=== PATIENT | female | born 1985 | race Caucasian/White ===

== ENCOUNTER → 2017-02-19 | Day surgery (SDC) | payer OTHER ==
[~2017-02-19] MED LIST: ACETAMINOPHEN PO; ACETAMINOPHEN325 MG PO; ALBUTEROL17 GM INH; ALLERGY10 M1 PO; AMOXICILLIN PO; AMOXIL500 MG PO; ANSAID100 MG PO; ATARAX PO; BIRTH CONTROL; BIRTH CONTROL PILL; BIRTH CONTROL PILL PO; BIRTH CONTROL PO; CELEXA PO; CELEXA20 MG PO; CLARITIN10 MG; CLARITIN10 MG PO; CLEOCIN HCL300 M1 PO; COLACE PO; DESYREL50 MG PO; DICLOFENAC PO; DICLOFENAC SODI50 MG PO; DICYCLOMINE HCL20 MG PO; DOXYCYCLINE HY100 M1 PO; DOXYCYCLINE PO; EC-NAPROSYN500 MG PO; FAMOTIDINE PO; FEMCON FE TABL1 EACH PO; FEOSOL PO; FERRO-TIME325 MG PO; FERROUS SULFATE PO; FIBERCON625 MG PO; FLAGYL PO; FLEXERIL PO; GILDESS1 EAC1 PO; IRON SUPPLEMENT; IRON1 TA1; IRON1 TAB PO; IRON325 ( 651 PO; LASIX PO; LEVOTHROID50 MCG PO; LEVOTHYROXINE75 MC1 PO; LEVSIN-SL0.125 MG SL; LINZESS290 MCG PO; LOESTRIN 24 FE1 TAB PO; LOESTRIN FE 1-21 TAB PO; LOPRESSOR PO; LORTAB 5/500 TA1 TA2 PO; MEDROL PO; MELATONIN; METOPROLOL; METOPROLOL SUC200 MG; METOPROLOL SUCC50 MG PO; METOPROLOL TART25 MG PO; MIRALAX17 GM DOB; MOBIC PO; NAPROSYN500 MG PO; NAPROXEN; NATURAL VITA400 UNI2 PO; NEXIUM; NEXIUM PO; NEXIUM20 MG PO; ORTHO MICRONO0.35 MG; ORTHO NOVUM PO; PHENERGAN PO; PHENERGAN25 MG PO; PRINIVIL5 MG PO; PYRIDIUM PO; QVAR7.3 GM INH; ROBAXIN500 MG PO; SLEEPING PILL; STOOL SOFTENER50 MG; SYNTHROID PO; SYNTHROID0.05 MG PO; SYNTHROID75 MCG; THYROID PO; TOPROL XL 50 MG50 MG PO; TOPROL XL PO; TOPROL XL50 MG PO; TRAMADOL HCL50 M2 PO; TRAZODONE PO; ULTRAM PO; VICODIN 5/1 TAB 5/50 PO; VICODIN 5/500 T1 TAB PO; VITAMIN D; VITAMIN D400 UNI2 PO; VOLTAREN50 MG PO; VOLTAREN75 MG PO; YASMIN 28 TABLE1 TAB PO; ZITHROMAX PO; ZOFRAN ODT4 MG PO; ZOFRANODT SL; ZOLOFT; ZOLOFT PO; ZOLOFT100 MG PO; ZYRTEC10 M2 PO; [UNRECOGNIZED DRUG - REMARK] PO
--- NOTE | ~2017-02-19 | OR ---
Unit #: [id number] #: [id number] Patient: KYRA HENDRICKS [id number] [address] [place], [place] [address] [id number] O MR#: [id number] NAME: KYRA HENDRICKS. ROOM: Date of Procedure: 02/19/2017 Admission Date: 02/19/2017 Surgeon: Sami Hsieh Jr., M.D. : 1985 Attending Physician: Sami Hsieh Jr., M.D. Primary Care Physician: Stephanie Matos A.P.R.N. OPERATIVE REPORT INDICATIONS FOR PROCEDURE The patient is a 31-year-old obese white female with a family history of Clemons syndrome, who has had some recent rectal bleeding. She is concerned about this and is brought in at her request for colonoscopy to rule out any significant pathology. PREOPERATIVE DIAGNOSIS Rectal bleeding etiology? POSTOPERATIVE DIAGNOSIS Normal colonoscopy to the distal ileum. ANESTHESIA MAC anesthesia. PROCEDURE PERFORMED Flexible colonoscopy to the distal ileum. DESCRIPTION OF PROCEDURE The patient was positioned in Burrell position with left side down. After being given MAC anesthesia, digital rectal examination was performed, which revealed no palpable mass or tenderness. No blood or stool within the rectal ampulla. The Olympus colonoscope was advanced through the anal canal up the rectum and retroflexed down to the area of the anorectal region. There was no evidence of any fissures and no significant internal hemorrhoids. The scope was then straightened and advanced up in the rectosigmoid, in the sigmoid and descending colon areas, around the splenic flexure and the transverse colon, around hepatic flexure and ascending colon, down in the area of the cecum. The light from the tip of the scope could be seen transilluminating through right lower quadrant abdominal wall area. The scope was advanced up the distal ileum approximately 10 to 12 inches. There was no evidence of any ileitis or inflammatory bowel disease. The scope was slowly removed. There were no tumors, polyps, cancer, or AVMs. No evidence of any colitis, diverticulosis, or diverticulitis. The caliber of the colon appeared normal throughout. The scope was removed. The patient tolerated the procedure well and discharged in satisfactory condition. Dictated by... Sami Hsieh Jr., M.D. Unit #: [id number] #: [id number] Patient: KYRA HENDRICKS YE/abril TD: 02/20/2017 00:59 JOB #: [id number] OPERATIVE REPORT Page 1 of 1 X Sami Hsieh MD PROCEDURE OPERATIVE NOTE
== END | disposition home or self-care (01) ==
LOC: COPS 11:25
DX: K62.5 Hemorrhage of anus and rectum (principal); K21.9 Gastro-esophageal reflux disease without esophagitis; F41.9 Anxiety disorder, unspecified; F32.9 Major depressive disorder, single episode, unspecified; E03.9 Hypothyroidism, unspecified; I10 Essential (primary) hypertension; J30.9 Allergic rhinitis, unspecified; E66.9 Obesity, unspecified; Z68.43 Body mass index [BMI] 50.0-59.9, adult; Z98.890 Other specified postprocedural states; Z90.49 Acquired absence of other specified parts of digestive tract; Z80.0 Family history of malignant neoplasm of digestive organs; Z79.899 Other long term (current) drug therapy; Z88.5 Allergy status to narcotic agent; Z88.2 Allergy status to sulfonamides
CPT/HCPCS: 84703; J2250

== ENCOUNTER → 2017-04-08 | Outpatient (CLI) | payer OTHER ==
--- NOTE | ~2017-04-08 | EKG ---
PATIENT: KYRA HENDRICKS UNIT #: [id number] Ventricular Rate: 65 BPM Atrial Rate: 65 BPM P-R Interval: 144 ms QRS Duration: 84 ms Q-T Interval: 460 ms QTC Calculation(Bezet): 478 ms P Palmetto: 46 degrees Calculated R Palmetto: -4 degrees Calculated T Palmetto: 7 degrees Diagnosis Line: Sinus rhythm with frequent Premature ventricular Diagnosis Line: complexes Diagnosis Line: Moderate voltage criteria for LVH, may be normal Diagnosis Line: variant Diagnosis Line: Borderline ECG Diagnosis Line: When compared with ECG of 03-MAR-2016 15:05, Diagnosis Line: No significant change was found Diagnosis Line: Confirmed by DB BARAJAS MD ([id number]) on 04/08/2017 Diagnosis Line: 7:49:30 PM INTERPRETING MD: JENN BOLIVAR
[2017-04-08 15:28] LABS: HEMATOCRIT 32.9 % (35.0-45.0); HEMOGLOBIN 10.6 gm/dL (12.0-16.0); MEAN CELL VOLUME 69.5 FL (83-96); MEAN CORPUSCULAR HEMOGLOBIN 22.4 PG (28-34); MEAN CORPUSCULAR HGB CONC 32.2 g/dL (30-36); RED BLOOD COUNT 4.73 X10e (3.90-5.30); WHITE BLOOD COUNT 9.9 X10e3 (4.0-10.5)
[2017-04-08 16:10] LABS: BUN/CREATININE RATIO 13.75; CALCIUM SERUM 8.9 mg/dL (8.4-10.2); CREATININE SERUM 0.8 mg/dL (0.6-1.4); GLOM FILT RATE Estimated 99.7 mL/min (>60); POTASSIUM 4.3 mmol/L (3.5-5.1)
== END | disposition home or self-care (01) ==
LOC: CAMB 14:20
PROVIDERS: Surgery
DX: Z01.818 Encounter for other preprocedural examination (principal)
CPT/HCPCS: 36415; 80048; 85027; 93005

== ENCOUNTER → 2017-04-16 | Day surgery (SDC) | payer OTHER ==
--- NOTE | ~2017-04-16 | OR ---
Unit #: [id number] #: [id number] Patient: KYAR HENDRICKS [id number] [address] [place], [place] [address] [id number] O MR#: [id number] NAME: KYRA HENDRICKS ROOM: Date of Procedure: 04/16/2017 Admission Date: 04/16/2017 Surgeon: Sami Hsieh Jr., M.D. : 1985 Attending Physician: Sami Hsieh Jr., M.D. OPERATIVE REPORT INDICATIONS FOR PROCEDURE The patient is a 31-year-old white female, who recently presented to the office complaining of painful breast masses on the right and left breast. She had no history of any trauma, but does have a known past history for lipomatosis. It was felt that could be painful lipomas. She is being given the option of watching these or coming in for removal of these and she is brought in at her request for excisional biopsies of both masses. PREOPERATIVE DIAGNOSIS Bilateral breast masses. POSTOPERATIVE DIAGNOSIS Bilateral breast masses, noting a lipomatous masses approximately 8 cm in diameter. ANESTHESIA General with LMA and 0.5% Marcaine with epinephrine locally. PROCEDURE PERFORMED Excision of right and left breast masses. DESCRIPTION OF PROCEDURE The patient was positioned in supine position. After being anesthetized, she was prepped and draped in routine fashion for bilateral breast biopsies with excision of her mass as described above. Both sides were locally anesthetized with 0.5% Marcaine with epinephrine. A transverse incisions were made over both masses approximately 3 to 4 inches in length with #10 blade scalpel. The lipomatous masses were encountered in both wounds and these were completely freed up with Metzenbaum scissors of the surrounding tissue and down to the deeper breast tissue. After they were completely removed, they were sent to pathology. Hemostasis was achieved with Bovie cautery. The deeper tissue in each wound was approximated with interrupted 3-0 Vicryl sutures and skin edges approximated with stainless-steel skin clips and skin stapling device. Sterile compression dressing was applied externally. Estimated blood loss less than 50 mL. The patient received less than 1000 mL crystalloid solution during the procedure. Sponges and instrument counts were correct x3. No drains used. No complications. The patient was taken to the recovery room with stable vital signs in satisfactory condition. Dictated by... Unit #: [id number] #: [id number] Patient: KYRA HENDRICKS Sami Hsieh Jr., M.D. JMB/abril TD: 04/16/2017 13:31 JOB #: [id number] OPERATIVE REPORT Page 1 of 1 X Sami Hsieh MD X PROCEDURE OPERATIVE NOTE
== END | disposition home or self-care (01) ==
LOC: CSUR 05:30
DX: N64.1 Fat necrosis of breast (principal); E65 Localized adiposity; K21.9 Gastro-esophageal reflux disease without esophagitis; F32.9 Major depressive disorder, single episode, unspecified; F41.9 Anxiety disorder, unspecified; E66.01 Morbid (severe) obesity due to excess calories; E03.9 Hypothyroidism, unspecified; G47.30 Sleep apnea, unspecified; N80.9 Endometriosis, unspecified; J30.9 Allergic rhinitis, unspecified; K58.9 Irritable bowel syndrome, unspecified; I10 Essential (primary) hypertension; Z68.44 Body mass index [BMI] 60.0-69.9, adult; Z86.2 Personal history of diseases of the blood and blood-forming organs and certain disorders involving the immune mechanism; Z80.0 Family history of malignant neoplasm of digestive organs; Z88.5 Allergy status to narcotic agent; Z88.2 Allergy status to sulfonamides; Z90.49 Acquired absence of other specified parts of digestive tract; Z98.890 Other specified postprocedural states; Z79.899 Other long term (current) drug therapy; Z79.52 Long term (current) use of systemic steroids
CPT/HCPCS: 84703; 88305; C1713; J1885; J2250; J2405; J3010

== ENCOUNTER 2017-05-07 17:38 | Emergency (ER) | payer OTHER ==
--- NOTE | ~2017-05-07 | EKG ---
PATIENT: KYRA HENDRICKS UNIT #: [id number] Ventricular Rate: 74 BPM Atrial Rate: 74 BPM P-R Interval: 152 ms QRS Duration: 82 ms Q-T Interval: 424 ms QTC Calculation(Bezet): 470 ms P Pablo: 21 degrees Calculated R Pablo: 4 degrees Calculated T Pablo: 18 degrees Diagnosis Line: Normal sinus rhythm Diagnosis Line: Minimal voltage criteria for LVH, may be normal Diagnosis Line: variant Diagnosis Line: Otherwise normal ECG Diagnosis Line: When compared with ECG of 08-APR-2017 14:44, Diagnosis Line: Premature ventricular complexes are no longer Diagnosis Line: Present Diagnosis Line: Confirmed by TONY INIGUEZ MD ([id number]) on 05/08/2017 Diagnosis Line: 5:48:50 PM INTERPRETING MD: HIRA BOLIVAR
--- NOTE | ~2017-05-07 | CT16 ---
[facility] A Service of [facility] RADIOLOGY TEXT RESULTS PATIENT: KYRA HENDRICKS LOCATION: SED : [birth year] UNIT #: [id number] AGE: [address]: EDDY MULLINS SEX: F ORDER DR: [id number] [address] [address] [id number] E MR#: [id number] Acc #: [id number] NAME: KYRA HENDRICKS : 1985 SEX: F STUDY DATE/TIME: 05/07/2017 19:24 UNIT: SED ROOM: STUDY DESCRIPTION: CT Angio Chest for PE Attending Physician: Eddy Mullins R.N. Ordering Physician: Eddy Mullins R.N. Primary Care Physician: Stephanie Matos A.P.R.N. MEDICAL IMAGING REPORT This report is preliminary unless electronic signature is present. EXAM CT chest PE protocol. HISTORY Shoulder pain, anxiety slightly elevated D-dimer. This CT exam was performed with one or more of the following radiation dose reduction techniques: automatic exposure control, adjustment of mA and/or kV according to patient size, and iterative reconstruction. FINDINGS Axial images performed following IV contrast. 3-D coronal and sagittal reconstructed images were reviewed at a workstation. Pulmonary parenchyma normal. No embolus. Heart and aorta unremarkable. Upper abdomen demonstrates a Lap-band device in place. Osseous structures show degenerative change of the lower thoracic spine. Thoracic inlet unremarkable. There are focal areas of induration within the anterior chest with small collections of gas in the left anterior chest possibly related to therapeutic injection but underlying infectious process not excluded. Correlate clinically. IMPRESSION 1. No acute intrathoracic abnormality identified. 2. Two areas of induration within the anterior soft tissues. On the left there are at least two small low-density collections which suggest gas. This could be related to therapeutic injection though underlying infectious process not excluded. Correlate with physical findings. On the right, there is induration with some overlying skin thickening in this also suggests a possible inflammatory process. [facility] A Service of [facility] RADIOLOGY TEXT RESULTS PATIENT: KYRA HENDRICKS LOCATION: [facility] : [birth year] UNIT #: [id number] AGE: [address]: EDDY MULLINS SEX: F ORDER DR: Dictated by... Serenity Barcenas M.D. THIS IS AN ELECTRONICALLY VERIFIED REPORT Serenity Barcenas M.D. at 05/08/2017 6:54 PM JIMMY/chapis TD: 05/08/2017 03:44 JOB #: [id number] MEDICAL IMAGING REPORT Page 1 of 1
--- NOTE | ~2017-05-07 | CR229 ---
[facility]. [facility] A Service of [facility] RADIOLOGY TEXT RESULTS PATIENT: KYRA HENDRICKS LOCATION: SED : 87 UNIT #: [id number] AGE: [address]: EDDY MULLINS SEX: F ORDER DR: [id number] [address] [address] [id number] E MR#: [id number] Acc #: [id number] NAME: KYRA HENDRICKS : 1985 SEX: F STUDY DATE/TIME: 05/07/2017 18:54 UNIT: SED ROOM: STUDY DESCRIPTION: CR Shoulder Min 2 View Lt Attending Physician: Eddy Mullins R.N. Ordering Physician: Eddy Mullins R.N. Primary Care Physician: Stephanie Matos A.P.R.N. MEDICAL IMAGING REPORT This report is preliminary unless electronic signature is present. EXAM Left shoulder, 3 views. HISTORY Complains of shoulder pain beginning 1 week ago. FINDINGS AP view with internal and external rotation of the shoulder girdle shows satisfactory relationship of the humeral head and glenoid fossa. The joint space is normal. There is no identifiable fracture or dislocation or bony destructive process about the shoulder girdle anatomy. The acromioclavicular joint is normal. There is no radiopaque foreign body in the region. IMPRESSION Normal shoulder. Dictated by... Serenity Barcenas M.D. THIS IS AN ELECTRONICALLY VERIFIED REPORT Serenity Barcenas M.D. at 05/08/2017 6:54 PM Leyla TD: 05/08/2017 03:14 JOB #: [id number] MEDICAL IMAGING REPORT Page 1 of 1
--- NOTE | ~2017-05-07 | CR63 ---
[facility] A Service of [facility] RADIOLOGY TEXT RESULTS PATIENT: KYRA HENDRICKS LOCATION: SED : 89 UNIT #: [id number] AGE: [address]: EDDY MULLINS SEX: F ORDER DR: [id number] [place] [id number] E MR#: [id number] Acc #: [id number] NAME: KYRA HENDRICKS : 1985 SEX: F STUDY DATE/TIME: 05/07/2017 18:54 UNIT: SED ROOM: STUDY DESCRIPTION: CR Chest 2 View Attending Physician: Eddy Mullins R.N. Ordering Physician: Eddy Mullins R.N. Primary Care Physician: Stephanie Matos A.P.R.N. MEDICAL IMAGING REPORT This report is preliminary unless electronic signature is present. EXAM Two-view chest HISTORY Chest pain and shoulder pain beginning 1 week ago. COMPARISON 03/03/2016 FINDINGS PA and lateral examination of the chest upright shows a good expansion of the parenchyma with a normal distribution of the pulmonary vascularity. There is no indication of congestion, effusion, infiltrate, tumor, or nodular density. The pleural reflections and diaphragmatic contours are normal. The cardiac silhouette and mediastinal anatomy is within normal limits. IMPRESSION Normal chest. Dictated by... Serenity Barcenas M.D. THIS IS AN ELECTRONICALLY VERIFIED REPORT Serenity Barcenas M.D. at 05/08/2017 6:54 PM JIMMY/chapis TD: 05/08/2017 03:30 JOB #: [id number] [facility] A Service [facility] RADIOLOGY TEXT RESULTS PATIENT: KYRA HENDRICKS LOCATION: SED : [birth year] UNIT #: [id number] AGE: [address]: EDDY MULLINS SEX: F ORDER DR: MEDICAL IMAGING REPORT Page 1 of 1
[2017-05-07 18:49] LABS: BASOPHIL# 0.1 X10e3 (0-0.3); BASOPHIL% 0.8 % (0-2.5); EOSINOPHIL# 0.3 X10e3 (0-0.7); EOSINOPHIL% 2.4 % (0.0-7.0); HEMATOCRIT 33.3 % (35.0-45.0); HEMOGLOBIN 10.5 gm/dL (12.0-16.0); LYMPHOCYTE# 2.6 X10e3 (1.0-3.5); LYMPHOCYTE% 23.6 % (17.0-45.0); MEAN CELL VOLUME 70.3 FL (83-96); MEAN CORPUSCULAR HEMOGLOBIN 22.2 PG (28-34); MEAN CORPUSCULAR HGB CONC 31.5 g/dL (30-36); MEAN PLATELET VOLUME 8.4 FL (6.5-11.5); MONOCYTE# 0.7 X10e3 (0-1.0); MONOCYTE% 6.4 % (3.0-12.0); NEUTROPHIL# 7.3 X10e3 (1.5-7.1); NEUTROPHIL% 66.8 % (40-75); PLATELET COUNT 245 X10e3 (140-420); RED BLOOD COUNT 4.74 X10e (3.90-5.30); RED CELL DISTRIBUTION WIDTH 17.5 % (11.0-15.5); WHITE BLOOD COUNT 10.9 X10e3 (4.0-10.5)
[2017-05-07 18:50] LABS: DIFF IND NO
[2017-05-07 18:59] LABS: POC - MYOGLOBIN 37.2 ng/mL (0.0-169.0)
[2017-05-07 19:00] LABS: POC - TROPONIN <0.05 ng/mL (<=0.05)
[2017-05-07 19:05] LABS: ALBUMIN SERUM 3.3 g/dL (3.5-5.0); BILIRUBIN,TOTAL 0.2 mg/dL (0.2-2.0); CALCIUM SERUM 8.5 mg/dL (8.4-10.2); GLOM FILT RATE Estimated 76.1 mL/min (>60); POTASSIUM 3.5 mmol/L (3.5-5.1); PROTEIN TOTAL SERUM 7.3 g/dL (6.0-8.3)
== END 2017-05-07 20:26 | disposition home or self-care (01) ==
LOC: SED 17:38
PROVIDERS: Nurse Practitioner
DX: M94.0 Chondrocostal junction syndrome [Tietze] (principal); S46.912A Strain of unspecified muscle, fascia and tendon at shoulder and upper arm level, left arm, initial encounter; F41.9 Anxiety disorder, unspecified; I10 Essential (primary) hypertension; E11.9 Type 2 diabetes mellitus without complications; K21.9 Gastro-esophageal reflux disease without esophagitis; Z90.49 Acquired absence of other specified parts of digestive tract; Z90.89 Acquired absence of other organs; Z88.2 Allergy status to sulfonamides; Z88.5 Allergy status to narcotic agent; X58.XXXA Exposure to other specified factors, initial encounter; Y92.69 Other specified industrial and construction area as the place of occurrence of the external cause; Y99.0 Civilian activity done for income or pay
CPT/HCPCS: 36415; 71020; 71275; 73030; 80053; 82553; 83874; 84484; 84703; 85025; 85379; 93005; 96374; 96375; 99284; J1885; J2060; J2405; Q9967

== ENCOUNTER 2017-05-08 | Inpatient (IN) | payer OTHER ==
[~2017-05-08] VITALS: Ht 170.2 cm; Wt 169.6 kg
--- NOTE | ~2017-05-08 | PA ---
Unit #: [id number] #: [id number] Patient: KYRA HENDRICKS [id number] [place] [address] [id number] I MR#: [id number] NAME: KYRA HENDRICKS ROOM: P252 Age: 31 Sex: F Admission Date: 05/09/2017 : 1985 Date of Assessment: 05/10/2017 Attending Physician: Jeronimo Hidalgo M.D. Admitting Physician: Jeronimo Hidalgo M.D. Primary Care Physician: Stephanie Matos A.P.R.N. PSYCHIATRIC ASSESSMENT IDENTIFYING INFORMATION The patient is a 31-year-old white female admitted to the [address] [place] [address] unit with increasing depressed mood and suicidal ideation. CHIEF COMPLAINT None given INFORMANT(S) The patient and chart. RELIABILITY Good. HISTORY OF PRESENT ILLNESS The patient is a 31-year-old white female admitted to the [address] [place] [address] unit with increasing depression and suicidal ideation. The patient initially had been evaluated and referred to the intensive outpatient program however his suicidal thinking worsened and she returned to this facility for admission. When seen today the patient is reporting some reduction and suicidal ideation. The major stressor faced by the patient is the recent of her friend from cancer. 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 The patient denies prior suicide attempts or gestures and denies prior psychiatric hospitalization. She has been prescribed Zoloft by her primary care physician and is currently on 200 mg of this medication. In spite of this she continues to complain of lack of energy and sad mood as well as increased sleep. The patient had a previous unsuccessful trial of citalopram prior to her Zoloft trial. The patient denies use of alcohol, tobacco or street drugs. She lives alone. Her mother had been recently placed in an operator/assistant foreman living facility. 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 PAST PSYCHIATRIC HISTORY As above. PAST MEDICAL HISTORY Significant for a history of morbid obesity, GERD, hypothyroidism, hypertension and environmental allergies. MEDICATIONS 1. Nexium Unit #: [id number] #: [id number] Patient: KYRA HENDRICKS 2. Levothyroxine 3. Sertraline 4. Lisinopril 5. Metroprolol 6. Hydroxyzine 7. Loratadine ALLERGIES Sulfa, codeine, oxycodone, Percocet. FAMILY HISTORY The patient has a brother who has suffered from addiction issues. SOCIAL HISTORY The patient lives alone. Her educational and substance abuse history are noted previously. She has never and has no children. MENTAL STATUS EXAMINATION At this time reveals the patient to be a morbidly obese white female appearing her stated age. She is casually dressed and groomed. She is awake, alert, and oriented in all spheres. Her mood is mildly dysphoric. Her affect congruent. Speech is generally relevant and coherent. There are no gross deficits in memory or cognition noted. Intelligence is judged to be in the average range based on fund of knowledge. The patient is cooperative throughout the interview. She is currently reporting no suicidal or homicidal ideation or psychotic features. Judgment and insight appear to be intact. ASSETS AND LIABILITIES ASSETS: Motivation for change, high level of functioning. LIABILITIES: None noted. DIAGNOSTIC IMPRESSION 1. Major depressive disorder recurrent moderate. 2. Hypothyroidism. 3. GERD. 4. Hypertension. 5. Environmental allergies. TREATMENT PLAN The patient remains hospitalized for safety and stabilization. She remains on suicidal precautions. I will add Wellbutrin XL 150 mg to the patient's currently prescribed Zoloft. She will participate in appropriate mederos and milieu activities with an estimate length of stay in the hospital of two to three days. Dictated by... Jeronimo Hidalgo M.D. PHYLLIS/betina TD: 05/10/2017 22:26 JOB #: [id number] Unit #: [id number] #: [id number] Patient: KYRA HENDRICKS PSYCHIATRIC ASSESSMENT Page 1 of 1 X Jeronimo Hidalgo MD X PSYCHIATRIC ASSESSMENT
--- NOTE | ~2017-05-08 | HP ---
Unit #: [id number] #: [id number] Patient: KYRA HENDRICKS [id number] [place] [address] [id number] I MR#: [id number] NAME: KYRA HENDRICKS ROOM: P252 Age: 31 Sex: F Admission Date: 05/09/2017 : 1985 Attending Physician: Jeronimo Hidalgo M.D. Admitting Physician: Jeronimo Hidalgo M.D. Primary Care Physician: Stephanie Matos A.P.R.N. HISTORY AND PHYSICAL HISTORY OF PRESENT ILLNESS The patient is a 31-year-old female admitted to [address] [place] [address] on 05/09/2017 for suicidal ideations. PAST MEDICAL HISTORY 1. Obesity. 2. GERD. 3. Hypothyroidism. 4. Migraines. 5. Hypertension. PAST SURGICAL HISTORY 1. Gastric bypass. 2. Tonsils and adenoids. 3. Bilateral ACL repair. 4. Multiple lipoma removal. 5. Appendectomy. 6. Cholecystectomy. 7. Ovarian cyst removal. 8. Right wrist. 9. Left shoulder. SOCIAL HISTORY She is employed at a daycare. She lives with her aunt and uncle. Denies alcohol, tobacco, and drug use. FAMILY MEDICAL HISTORY Noncontributory. ALLERGIES Sulfa, codeine and Percocet. CURRENT MEDICATIONS 1. Vistaril 2. Nexium 3. Levothyroxine 4. Zoloft 5. Lisinopril 6. Metroprolol 7. Loratadine REVIEW OF SYSTEMS CONSTITUTIONAL: No fever or chills. Unit #: [id number] #: [id number] Patient: KYRA HENDRICKS HEENT: Denies any sore throat, ear pain or runny nose. CARDIOVASCULAR: Denies chest pain, irregular heart rhythm or palpitations. CHEST: Denies shortness of breath or cough. No hemoptysis. GASTROINTESTINAL: Denies nausea, vomiting, diarrhea or chronic constipation. ENDOCRINE: Denies history of increased thirst or urination. No recent significant weight loss or gain. GENITOURINARY: Denies dysuria, frequency, or hematuria. SKIN: Denies any rashes. HEMATOLOGIC: Denies history of increased bleeding or bruising. MUSCULOSKELETAL: Denies any hot, swollen joints. No generalized muscle pain. NEUROLOGIC: Denies problems with vision or speech. No frequent, severe headaches. No numbness, tingling or weakness in any extremities. Denies loss of bladder or bowel control. PHYSICAL EXAM GENERAL: She is awake, alert and oriented in no acute distress. VITAL SIGNS: Temperature 98.5, heart rate 74, respiration 18, blood pressure 145/85. HEIGHT: 5'7". WEIGHT: 374 pounds. SKIN: Warm and dry without rash or lesion. HEENT: Normocephalic. TMs not viewed. Oral and nasal passages clear. Conjunctivae clear. PERRLA. EOMs intact. NECK: Supple without lymphadenopathy or thyromegaly. HEART: Regular rate and rhythm without murmur. LUNGS: Clear. ABDOMEN: Soft, nontender. : Not done. EXTREMITIES: No evidence of cyanosis, clubbing or edema. Moves all without focal deficit. NEUROLOGICAL: Grossly within normal limits. Cranial Nerves: II: Visual dutton are intact. III, IV AND : Extraocular movements are intact. Pupils are equal, round and reactive to light. V: Facial sensation is grossly normal. VII: Facial movements and expression are normal. VIII: Auditory acuity grossly intact. IX, X: Uvula is midline. Phonation is normal. XI: Patient shrugs shoulders and turns head normally. XII: Tongue protrudes in the midline. Sensory and Motor Function: Sensory and motor sensation is grossly normal. Motor: moves all extremities well. IMPRESSION 1. Psychiatric admission. 2. Obesity. 3. GERD. 4. Hypothyroidism. 5. Migraines. 6. Hypertension. RECOMMENDATIONS Psychiatric per psychiatrist. MEDICAL: No contraindication to participate in facility activities. MEDICAL PROGNOSIS Fair. Unit #: [id number] #: [id number] Patient: KYRA HENDRICKS MEDICAL CONDITION Stable. Dictated by... Glendy Brush/betina TD: 05/12/2017 00:44 JOB #: [id number] HISTORY AND PHYSICAL Page 1 of 1 X SAUL FOUNTAIN APRN HISTORY AND PHYSICAL
--- NOTE | ~2017-05-08 | DS ---
Unit #: [id number] #: [id number] Patient: KYRA HENDRICKS [id number] [place] [address] [id number] I MR#: [id number] NAME: KRYA HENDRICKS ROOM: P252 Age: 31 Sex: F Admission Date: 05/09/2017 : 1985 Discharge Date: 05/11/2017 Attending Physician: Jeronimo Hidalgo M.D. Primary Care Physician: Stephanie Matos A.P.R.N. DISCHARGE SUMMARY REASON FOR ADMISSION The patient is a 31-year-old white female admitted with worsening symptoms of depression and suicidal ideation. HOSPITAL COURSE The patient was admitted to the [facility] Unit and placed on suicide precautions. She was continued on previously prescribed medications including Nexium, levothyroxine, sertraline, lisinopril, metoprolol, hydroxyzine, and loratadine. She was begun on Wellbutrin XL 150 mg daily in hopes of augmenting the antidepressant effect of her previously prescribed Zoloft. She tolerated the medication well and was already reporting reduced suicidal ideation when seen. On 05/10 and 05/11, she was sustaining progress and was in agreement with a plan for followup through the auspices of [facility] mental health resources. As per her request, discharge was ordered. FINAL DIAGNOSES 1. Major depressive disorder, recurrent, moderate. 2. Morbid obesity. 3. Gastroesophageal reflux disease. 4. Hypothyroidism. 5. Environmental allergies. 6. Hypertension. DISPOSITION ON DISCHARGE The patient was discharged on the following medications: 1. Wellbutrin XL 150 mg daily for depression. 2. Nexium 2 tablets twice daily for GERD. 3. Levothyroxine 75 mcg daily for hypothyroidism. 4. Sertraline 200 mg daily for depression. 5. Lisinopril 5 mg daily for hypertension. 6. Metoprolol 50 mg q.a.m. for hypertension. 7. Hydroxyzine 25 mg q. 6 hours p.r.n. anxiety. 8. Loratadine 10 mg daily for environmental allergies. DIET AND ACTIVITY No dietary or physical restrictions placed on the patient at the time of discharge. FOLLOWUP Followup will take place through the auspices of [facility] mental health resources. PROGNOSIS Unit #: [id number] #: [id number] Patient: KYRA HENDRICKS Considered good. Dictated by... Mary Owens TD: 05/13/2017 10:05 JOB #: [id number] DISCHARGE SUMMARY Page 1 of 1 X Jeronimo Hidalgo MD X DISCHARGE SUMMARY
[2017-05-10 11:31] LABS: URINE APPEARANCE CLOUDY; URINE BILIRUBIN NEG (NEG); URINE BLOOD NEG (NEG); URINE COLOR YELLOW; URINE GLUCOSE NEG (NEG); URINE KETONE NEG (NEG); URINE LEUKOCYTE ESTERASE NEG (NEG); URINE NITRATE NEG (NEG); URINE PH 6.5 (5-8); URINE PROTEIN NEG (NEG); URINE SPECIFIC GRAVITY 1.026 (1.003-1.035)
[2017-05-10 11:55] LABS: AMPHETAMINE NEG (NEG); BARBITURATES NEG (NEG); BENZODIAZEPINES NEG (NEG); COCAINE NEG (NEG); MARIJUANA NEG (NEG); OPIATES NEG (NEG); TRICYCLIC ANTIDEPRESSANTS NEG (NEG); U METHADONE NEG (NEG)
[2017-05-10 13:26] LABS: BILIRUBIN,TOTAL 0.4 mg/dL (0.2-2.0); BUN/CREATININE RATIO 14.28; CALCIUM SERUM 8.7 mg/dL (8.4-10.2); CREATININE SERUM 0.7 mg/dL (0.6-1.4); GLOM FILT RATE Estimated 117.1 mL/min (>60); POTASSIUM 3.9 mmol/L (3.5-5.1); PROTEIN TOTAL SERUM 6.3 g/dL (6.0-8.3)
[2017-05-10 13:32] LABS: BASOPHIL# 0.1 X10e3 (0-0.3); BASOPHIL% 0.8 % (0-2.5); EOSINOPHIL# 0.2 X10e3 (0-0.7); EOSINOPHIL% 2.7 % (0.0-7.0); HEMATOCRIT 32.1 % (35.0-45.0); HEMOGLOBIN 10.1 gm/dL (12.0-16.0); LYMPHOCYTE# 1.7 X10e3 (1.0-3.5); LYMPHOCYTE% 19.1 % (17.0-45.0); MEAN CELL VOLUME 70.4 FL (83-96); MEAN CORPUSCULAR HEMOGLOBIN 22.2 PG (28-34); MEAN CORPUSCULAR HGB CONC 31.5 g/dL (30-36); MEAN PLATELET VOLUME 9.1 FL (6.5-11.5); MONOCYTE# 0.5 X10e3 (0-1.0); MONOCYTE% 5.8 % (3.0-12.0); NEUTROPHIL# 6.3 X10e3 (1.5-7.1); NEUTROPHIL% 71.6 % (40-75); PLATELET COUNT 215 X10e3 (140-420); RED BLOOD COUNT 4.56 X10e (3.90-5.30); RED CELL DISTRIBUTION WIDTH 17.7 % (11.0-15.5); WHITE BLOOD COUNT 8.8 X10e3 (4.0-10.5)
[2017-05-10 13:37] LABS: DIFF IND NO
== END 2017-05-11 14:00 | disposition home or self-care (01) | DRG 885 ==
LOC: P2L 05-09 23:36
PROVIDERS: Specialist
DX: F33.1 Major depressive disorder, recurrent, moderate (principal); R45.851 Suicidal ideations; Z68.43 Body mass index [BMI] 50.0-59.9, adult; E66.01 Morbid (severe) obesity due to excess calories; I10 Essential (primary) hypertension; E03.9 Hypothyroidism, unspecified; K21.9 Gastro-esophageal reflux disease without esophagitis; J30.2 Other seasonal allergic rhinitis; Z88.2 Allergy status to sulfonamides; Z88.5 Allergy status to narcotic agent; G43.909 Migraine, unspecified, not intractable, without status migrainosus
CPT/HCPCS: 80053; 80307; 81003; 84703; 85025